=== PATIENT | female | born 1990 | race American Indian/Alaskan Native ===

== ENCOUNTER 2017-04-13 17:31 | Emergency (ER) | payer OTHER ==
[2017-04-13 18:14] VITALS: BP 105/70
[2017-04-13] MEDS ORDERED: TRIPLE ANTIBIOTIC TP ONE (21:52)
[2017-04-13] MEDS ORDERED: MOTRIN PO ONE (21:52)
[2017-04-13] MEDS ORDERED: XYLOCAINE 2%/EPI 1:100,000 INFILTRATI ONE (21:52)
[2017-04-13] MEDS ORDERED: XYLOCAINE 2%/ EPI 1:200,000 INFILTRATI ONE (22:04)
--- NOTE | 2017-04-13 22:05 | Emergency Department Report ---
Abscess Boil HPI - HPI Chief Complaint: Skin/Abscess/Foreign Body Stated Complaint: FACIAL ABSCESS Time Seen by Provider: 04/13/17 21:31 Duration: 3 Days Location: Head (right side jain region) Severity: None History: Yes Pain, Yes Purulent Drainage, Yes Previous History, No Fever, No Numbness, No Foreign Body, No Insect Bite HPI: 26-year-old female past medical history sebaceous cyst, obesity presents with complaint of 2-3 days of discomfort and some drainage from a sebaceous cyst she has on her right jain. Denies fevers or chills. States pain is localized to skin she has noticed some redness. Patient awake alert and oriented 3 contrary to triage report does not have headache only has discomfort on skin adjacent to the infected site Home Medications: Previous Rx's Medication Instructions Recorded Last Taken Type Ibuprofen [Motrin] 800 mg PO Q8HR PRN #30 tablet 04/13/17 Unknown Rx Neomy/Baci/Polymyx Oint [Triple 1 applicatio TP BID #1 oint 04/13/17 Unknown Rx Antibiotic] Sulfamethoxazole/Trimethoprim 1 each PO BID #14 tablet 04/13/17 Unknown Rx [Bactrim DS TAB] Allergies/Adverse Reactions: Allergies Allergy/AdvReac Type Severity Reaction Status Date / Time No Known Allergies Allergy Unverified 04/13/17 18:09 ED Review of Systems ROS: Stated complaint: FACIAL ABSCESS Other details as noted in HPI Constitutional: denies: chills, fever Eyes: denies: eye pain, eye discharge, vision change ENT: as per HPI. denies: ear pain, throat pain Respiratory: denies: cough, shortness of breath, wheezing Cardiovascular: denies: chest pain, palpitations Endocrine: no symptoms reported Gastrointestinal: denies: abdominal pain, nausea, diarrhea Genitourinary: denies: urgency, dysuria, discharge Musculoskeletal: denies: back pain, joint swelling, arthralgia Skin: denies: rash, lesions Neurological: denies: headache, weakness, paresthesias Psychiatric: denies: anxiety, depression Hematological/Lymphatic: denies: easy bleeding, easy bruising ED Past Medical Hx - Past Medical History Previous Medical History?: No - Surgical History Past Surgical History?: Yes Additional Surgical History: x2 - Social History Smoking Status: Never Smoker Substance Use Type: None - Medications Home Medications: Home Medications Medication Instructions Recorded Confirmed Last Taken Type Ibuprofen [Motrin] 800 mg PO Q8HR PRN #30 tablet 04/13/17 Unknown Rx Neomy/Baci/Polymyx Oint [Triple 1 applicatio TP BID #1 oint 04/13/17 Unknown Rx Antibiotic] Sulfamethoxazole/Trimethoprim 1 each PO BID #14 tablet 04/13/17 Unknown Rx [Bactrim DS TAB] ED Abscess Boil Physical Exam - Exam General: Vital signs noted. No distress. Alert and acting appropriately. Front/Back of Body, Lg (Color): 1 - Small soft palpable sebaceous cyst right jain region. Size: 2 cm Exam: Yes Tenderness, Yes Fluctuance, No Surrounding Cellulites/Erythema, No Lymphangitis, No Crepitation, No Heart Murmur, No Normal Neurologic Exam, No Normal Circulation I & D Note - I & D Note I & D Note: Area of sebaceous cyst infiltrated with lidocaine with epinephrine. Good local anesthesia achieved. Single stab incision made less than half centimeter. I was able to express approximately 1-2 mL of sebaceous material. No significant purulence. Thick oily material. Procedure tolerated well with minimal bleeding. Covered with triple antibiotic ointment and Band-Aid afterward. Minimal pain patient felt significant relief after drainage. ED Course Vital Signs 04/13/17 18:09 Temperature 98.6 F Pulse Rate 88 Respiratory 18 Rate Blood Pressure 105/70 O2 Sat by Pulse 98 Oximetry Critical Care Time: Yes Critical care time in (mins) excluding proc time.: 25 Critical care attestation.: If time is entered above; I have spent that time in minutes in the direct care of this critically ill patient, excluding procedure time. ED Medical Decision Making - Medical Decision Making A/P: Sebaceous cyst incision and drainage 1-successful removal/drainage of sebaceous cyst 2-will give patient empiric course of Bactrim. No significant cellulitis around site of sebaceous cyst but as patient was in pain and it was slightly inflamed will cover for typical skin laury 3-Motrin when necessary. I advised patient on acute and care. 4-follow up with dermatology. Patient has history of sebaceous cysts in the past. ED Disposition Clinical Impression: Sebaceous cyst, Encounter for incision and drainage procedure Disposition: TO HOME OR SELFCARE Is pt being admited?: No Does the pt Need Aspirin: No Condition: Stable Instructions: Acute Wound Care (ED), Incision and Drainage (ED), Abscess Incision and Drainage (ED) Prescriptions: Ibuprofen [Motrin] 800 mg PO Q8HR PRN #30 tablet PRN Reason: Pain Neomy/Baci/Polymyx Oint [Triple Antibiotic] 1 applicatio TP BID #1 oint Sulfamethoxazole/Trimethoprim [Bactrim DS TAB] 1 each PO BID #14 tablet Referrals: [facility] [Outside] - 3-5 Days [facility] [Provider Group] - 3-5 Days Time of Disposition: 22:55
== END 2017-04-13 23:05 | disposition home or self-care (01) ==
LOC: ED 17:31
DX: L72.3 Sebaceous cyst (principal)
CPT/HCPCS: A6250